=== PATIENT | female | born 1950 | race Native Hawaiian/Other Pacific Islander ===

== ENCOUNTER 2022-02-06 19:34 | Emergency (ER) | payer OTHER ==
[~2022-02-06] VITALS: Ht 172.7 cm; Wt 60.3 kg
[~2022-02-06 19:34] MED LIST: DIVALPROEX250 MG PO; MAGNSUS68 PO; QUET100T2 PO
[2022-02-06 19:58] LABS: PLATELET COUNT 144 K/uL (152-353)
[2022-02-06 20:03] LABS: POTASSIUM 3.8 mmol/L (3.6-5.2)
[2022-02-06 20:45] VITALS: BP 142/92; TEMP 98
[2022-02-07] MEDS ORDERED: FAMO20TA4 PO (09:10)
[2022-02-07] MEDS ORDERED: QUETIAPINE25 MG PO (09:12)
[2022-02-07] MEDS ORDERED: QUETIAPINE50 MG PO (09:13)
[2022-02-07] MEDS ORDERED: DIPH50IN IM (09:14)
[2022-02-07] MEDS ORDERED: HALO5INJ3 IM (09:15)
== END 2022-02-06 20:45 | disposition still patient (30) ==
LOC: ED 19:34
PROVIDERS: Emergency Medicine Emergency Medical Services
DX: F03.91 Unspecified dementia, unspecified severity, with behavioral disturbance (principal); N39.0 Urinary tract infection, site not specified; Z11.52 Encounter for screening for COVID-19; Z04.6 Encounter for general psychiatric examination, requested by authority
CPT/HCPCS: 36415; 80053; 81000; 85027; 87077; 87086; 87088; 87186; 87635; 93005; 96372; 99283; J0696; U0003

== ENCOUNTER 2022-02-23 18:33 | Emergency (ER) | payer OTHER ==
[~2022-02-23] VITALS: Ht 172.7 cm; Wt 60.8 kg
[~2022-02-23 18:33] MED LIST changes: +ACET-206 PO; +ATOR20TA2 PO; +DIPH50IN IM; +FAMO20TA4 PO; +HALO5INJ3 IM; +NORVASC 5MG TAB PO; +QUETIAPINE25 MG PO; +QUETIAPINE50 MG PO
[2022-02-23 19:22] LABS: POTASSIUM 3.7 mmol/L (3.6-5.2)
[2022-02-23 19:23] LABS: PLATELET COUNT 138 K/uL (152-353)
[2022-02-23 19:50] VITALS: BP 162/93; TEMP 98.3
[2022-02-23] MEDS ORDERED: MELATONIN3 M1 PO (21:26)
[2022-02-23] MEDS ORDERED: DIVALPROEX250 MG PO (21:28)
[2022-02-23] MEDS ORDERED: QUETIAPINE50 MG PO (21:29)
[2022-02-23] MEDS ORDERED: DIPH50IN INJ (21:30)
[2022-02-23] MEDS ORDERED: HALO5INJ3 IM (21:31)
[2022-02-23] MEDS ORDERED: HALO5TAB10 PO (21:33)
== END 2022-02-23 19:50 | disposition still patient (30) ==
LOC: ED 18:33
PROVIDERS: Emergency Medicine
DX: F03.91 Unspecified dementia, unspecified severity, with behavioral disturbance (principal); Z11.52 Encounter for screening for COVID-19; Z04.6 Encounter for general psychiatric examination, requested by authority
CPT/HCPCS: 80053; 85027; 87635; 93005; 99283; U0003